=== PATIENT | female | born 1985 | race Caucasian/White ===

== ENCOUNTER 2017-09-19 15:16 | Emergency (ER) | payer OTHER ==
--- NOTE | 2017-09-19 15:22 | PDOC ---
Rapid Medical Evaluation Time Seen by Provider: 09/19/17 15:18 Medical Evaluation: Allergies Allergy/AdvReac Type Severity Reaction Status Date / Time No Known Allergies Allergy Verified 09/19/17 15:18 09/19/17 15:20 I have performed a brief in-person evaluation of this patient. The patient presents with a chief complaint of: dyspnea and fluid retention Pertinent physical exam findings: PULM: CTAB CARDS: RRR. No m/r/g. ABD: SNTND I have ordered the following: UPT, UA, CXR, EKG, CBC, CMP, trop, BNP The patient will proceed to the ED for further evaluation. Discharge Disposition - Diagnosis Fluid retention - Referrals - Patient Instructions - Post Discharge Activity
[2017-09-19 15:23] VITALS: TEMP 98.3; BMI 24.2
[2017-09-19 15:46] LABS: BASOPHIL 0.6 % (0-2.0); EOSINOPHIL 2.2 % (0-4.5); MCHC 33.5 g/dl (32.0-36.0); MEAN CELL VOLUME 95.6 fl (80-96); MEAN PLT VOLUME 7.5 fl (7.5-11.1); NEUTROPHILS 45.3 % (42.8-82.8); PLATELET COUNT 274 K/MM3 (134-434); WHITE BLOOD COUNT 6.9 K/mm3 (4.0-10.0)
[2017-09-19 16:00] LABS: ALBUMIN 3.8 g/dl (3.4-5.0); ANION GAP 10 (8-16); CALCIUM 8.6 mg/dL (8.5-10.1); CO2 28 mmol/L (21-32); CREATININE 0.6 mg/dL (0.55-1.02); GLUCOSE,RANDOM 75 mg/dL (74-106); SGOT/AST 60 U/L (15-37); SGPT/ALT 107 U/L (12-78)
[2017-09-19 16:04] LABS: ALK PHOS 125 U/L (45-117); BILIRUBIN,TOTAL 0.3 mg/dL (0.2-1.0); CPK 187 IU/L (26-192); TOT PROT 6.9 g/dl (6.4-8.2); TROPONIN I < 0.02 ng/ml (0.00-0.05)
--- NOTE | 2017-09-19 16:59 | PDOC ---
History of Present Illness - General History Source: Patient Exam Limitations: No Limitations - History of Present Illness Initial Comments: 09/19/17 16:59 The patient is a 32 year old female, with no significant past medical history who presents to the emergency department with intermittent episodes of SOB. She notes her SOB is made worse with activity. The patient also arrives with c/os of LE swelling and numbness. The patient notes just recently finishing a weight loss diet, taking multiple diet pills. She also arrives with chief complaints of abdominal cramping/bloating. She denies recent fevers, chills, headache or dizziness. She denies recent nausea, vomit, diarrhea or constipation. She denies recent dysuria, frequency, urgency or hematuria. She denies recent chest pain. She denies any palpitations. Allergies: NKA Past surgical history: None reported. Social history: Nonsmoker. Denies EtOH use and recreational drug use. <Kavon Brown - Last Filed: 09/19/17 16:59> - General History Source: Patient Exam Limitations: No Limitations <Mary Jeffries - Last Filed: 09/19/17 18:23> - General Chief Complaint: Shortness of Breath Stated Complaint: SOB Time Seen by Provider: 09/19/17 15:18 Past History <Kavon Brown - Last Filed: 09/19/17 16:59> - Past Medical History COPD: No Other medical history: DENIES. - Suicide/Smoking/Psychosocial Hx Smoking History: Never smoked <Mary Jeffries - Last Filed: 09/19/17 18:23> - Past Medical History Allergies/Adverse Reactions: Allergies Allergy/AdvReac Type Severity Reaction Status Date / Time No Known Allergies Allergy Verified 09/19/17 15:18 Review of Systems - Review of Systems Able to Perform ROS?: Yes Comments:: 09/19/17 16:59 GENERAL/CONSTITUTIONAL: No fever or chills. No weakness. HEAD, EYES, EARS, NOSE AND THROAT: No change in vision. No ear pain or discharge. No sore throat. CARDIOVASCULAR: No chest pain +shortness of breath. RESPIRATORY: No cough, wheezing, or hemoptysis. GASTROINTESTINAL: +abdominal bloating. No nausea, vomiting, diarrhea or constipation. GENITOURINARY: No dysuria, frequency, or change in urination. MUSCULOSKELETAL: +LE swelling/pain. No joint or muscle swelling or pain. No neck or back pain. SKIN: No rash NEUROLOGIC: No headache, vertigo, loss of consciousness, or change in strength/ sensation. ENDOCRINE: No increased thirst. No abnormal weight change. HEMATOLOGIC/LYMPHATIC: No anemia, easy bleeding, or history of blood clots. ALLERGIC/IMMUNOLOGIC: No hives or skin allergy. <Kavon Brown - Last Filed: 09/19/17 16:59> *Physical Exam - Vital Signs Last Vital Signs Temp Pulse Resp BP Pulse Ox 98.3 F 72 19 138/73 99 09/19/17 15:18 09/19/17 15:18 09/19/17 15:18 09/19/17 15:18 09/19/17 15:18 - Physical Exam Comments: 09/19/17 16:59 GENERAL: Awake, alert, and fully oriented, in no acute distress HEAD: No signs of trauma EYES: PERRLA, EOMI, sclera anicteric, conjunctiva clear ENT: Auricles normal inspection, hearing grossly normal, nares patent, Moist mucosa NECK: Normal ROM, supple, JVD, or masses LUNGS: Breath sounds equal, clear to auscultation bilaterally. No wheezes, and no crackles HEART: Regular rate and rhythm, normal S1 and S2, no murmurs, rubs or gallops ABDOMEN: Soft, nontender, normoactive bowel sounds. No guarding, no rebound. No masses EXTREMITIES: Normal range of motion, no edema. No clubbing or cyanosis. No cords, erythema, or tenderness. 2+DP/PT pulses. NEUROLOGICAL: Normal speech, normal gait, moves all extremities equally. Speech clear. SKIN: Warm, Dry, normal turgor, no rashes or lesions noted. <Kavon Brown - Last Filed: 09/19/17 16:59> - Vital Signs Last Vital Signs Temp Pulse Resp BP Pulse Ox 98.3 F 72 19 138/73 99 09/19/17 15:18 09/19/17 15:18 09/19/17 15:18 09/19/17 15:18 09/19/17 15:18 <Mary Jeffries - Last Filed: 09/19/17 18:23> Heart Score/ECG Review #1 General ECG Interpretation: Sinus Rhythm, Normal Rate (65), Normal Intervals, No acute ischemic changes <Mary Jeffries - Last Filed: 09/19/17 18:23> ED Treatment Course - LABORATORY CBC & Chemistry Diagram: 09/19/17 15:15 09/19/17 15:15 - ADDITIONAL ORDERS Additional order review: Laboratory Results 09/19/17 09/19/17 15:25 15:15 Sodium 141 Potassium 3.8 Chloride 103 Carbon Dioxide 28 Anion Gap 10 BUN 21 H Creatinine 0.6 Creat Clearance w eGFR > 60 Random Glucose 75 Calcium 8.6 Total Bilirubin 0.3 AST 60 H ALT 107 H Alkaline Phosphatase 125 H Creatine Kinase 187 Troponin I < 0.02 B-Natriuretic Peptide 38.66 Total Protein 6.9 Albumin 3.8 Urine HCG, Qual Negative 09/19/17 15:15 RBC 4.31 MCV 95.6 MCHC 33.5 RDW 13.0 MPV 7.5 Neutrophils % 45.3 Lymphocytes % 45.6 H Monocytes % 6.3 Eosinophils % 2.2 Basophils % 0.6 <Kavon Brown - Last Filed: 09/19/17 16:59> - LABORATORY CBC & Chemistry Diagram: 09/19/17 15:15 09/19/17 15:15 - ADDITIONAL ORDERS Additional order review: Laboratory Results 09/19/17 09/19/17 15:25 15:15 Sodium 141 Potassium 3.8 Chloride 103 Carbon Dioxide 28 Anion Gap 10 BUN 21 H Creatinine 0.6 Creat Clearance w eGFR > 60 Random Glucose 75 Calcium 8.6 Total Bilirubin 0.3 AST 60 H ALT 107 H Alkaline Phosphatase 125 H Creatine Kinase 187 Troponin I < 0.02 B-Natriuretic Peptide 38.66 Total Protein 6.9 Albumin 3.8 Urine HCG, Qual Negative 09/19/17 15:15 RBC 4.31 MCV 95.6 MCHC 33.5 RDW 13.0 MPV 7.5 Neutrophils % 45.3 Lymphocytes % 45.6 H Monocytes % 6.3 Eosinophils % 2.2 Basophils % 0.6 <Mary Jeffries - Last Filed: 09/19/17 18:23> Medical Decision Making - Medical Decision Making 09/19/17 16:56 32-year-old female with no past medical history here with chief complaint of diffuse body swelling. Patient states that she had recently seen a scalder or dietitian that started her on multiple herbal supplements and hydrochlorothiazide for weight loss. Patient currently weighed previously 140 pounds. States she has gained 10 pounds. Recently stopped hydrochlorothiazide for 5 days ago. Denies chest pain, no history of blood clots, does feel mild short of breath at times. No fever no chills no flank pain just her abdomen is bloated but otherwise no complaints of pain On exam patient is awake alert no acute distress cardiac exam is normal rate no murmurs rubs or gallops. Lungs are clear bilaterally. Abdomen is soft and nontender no appreciated ascites or distention. No CVA tenderness. Extremities are warm well perfused without edema. Differential diagnosis: Renal failure, weight gain from stopping a diuretic, edema, rhabdo, liver failure, plan and labs EKG chest x-ray and reassess. Patient's labs ordered for rapid evaluation are normal no sign of kidney dysfunction. Patient has mild LFT elevation. Do not appreciate any swelling or edema on exam. Patient will likely have to follow up with her primary care doctor patient is encouraged to discontinue all diuretics and all supplements and reinforced that the patient is not currently overweight <Mary Jeffries - Last Filed: 09/19/17 18:23> *DC/Admit/Observation/Transfer - Attestations Scribe Attestion: 09/19/17 16:59 Documentation prepared by Kavon Brown, acting as medical assistant ob gyn for Mary Jeffries MD. <aKvon Brown - Last Filed: 09/19/17 16:59> <Mary Jeffries - Last Filed: 09/19/17 18:23> Diagnosis at time of Disposition: Fluid retention - Discharge Dispostion Disposition: HOME Condition at time of disposition: Improved - Referrals Referrals: Kermit Stone [Primary Care Provider] - - Patient Instructions Printed Discharge Instructions: Edema (Alternative Therapy) Additional Instructions: you should avoid taking herbal supplements or diuretics for weight loss. Follow- up with your primary doctor. All labs today including kidney function were normal. U did have a mild elevation however. Liver function tests which should be repeated with her primary doctor return for any worsening chest pain shortness of breath or any other concerns - Post Discharge Activity
[2017-09-19 18:24] LABS: URINE APPEARANCE CLEAR; URINE BILIRUBIN NEGATIVE (NEGATIVE); URINE BLOOD NEGATIVE (NEGATIVE); URINE COLOR LTYELLOW; URINE GLUCOSE (UA) NEGATIVE (NEGATIVE); URINE KETONE NEGATIVE (NEGATIVE); URINE NITRITE NEGATIVE (NEGATIVE); URINE PROTEIN NEGATIVE (NEGATIVE); URINE UROBILINOGEN NEGATIVE mg/dL (0.2-1.0)
[2017-09-19 18:47] VITALS: BP 138/72; PULSE 70
--- NOTE | 2017-09-20 10:03 | EKG ---
Test Reason : Blood Pressure : / mmHG Vent. Rate : 065 BPM Atrial Rate : 065 BPM P-R Int : 190 ms QRS Dur : 084 ms QT Int : 404 ms P-R-T Axes : 049 061 035 degrees QTc Int : 420 ms NORMAL SINUS RHYTHM NORMAL ECG NO PREVIOUS ECGS AVAILABLE Confirmed by JAQUELIN RESENDIZ MD ([id number]) on 09/20/2017 10:02:58 AM Referred By: Confirmed By:JAQUELIN RESENDIZ MD
== END 2017-09-19 18:47 | disposition home or self-care (01) ==
LOC: JER 15:16
DX: R60.9 Edema, unspecified (principal)
CPT/HCPCS: 36415; 71020-TC; 80053; 81003; 82550; 82553; 83880; 84484; 84703; 85025; 93005; 93010; 99282-25